=== PATIENT | female | born 2000 | race Hispanic/Latino ===

== ENCOUNTER 2020-08-06 22:24 | Day surgery (SDC) | payer OTHER ==
[2020-08-06 22:55] VITALS: BP 126/82; TEMP 97.9; BMI 35.7
[2020-08-06] MEDS ORDERED: hydrALAZINE 20 MG/ML VIAL SLOW IVP PRN (23:05)
--- NOTE | 2020-08-06 23:34 | PRG ---
DATE OF SERVICE: 08/06/2020 TIME OF SERVICE: 2300 hours. PRESENTING COMPLAINT: A 37 weeks gestation with contractions. HISTORY OF PRESENT ILLNESS: The patient is a 20-year-old primigravida at 37 weeks, OB record not on the unit. She reports no leakage of fluid. She reports contractions q.5-10 minutes for the past hour. She reports an uncomplicated . RESIDENTIAL PROGRAM WORKER HISTORY: As noted. PAST MEDICAL HISTORY: None. PAST SURGICAL HISTORY: None. ALLERGIES: DENIES. MEDICATIONS: vitamins. SOCIAL HISTORY: Denies tobacco, alcohol, or drug abuse. FAMILY HISTORY: Noncontributory. REVIEW OF SYSTEMS: Noncontributory. PHYSICAL EXAMINATION: GENERAL: female, in no acute distress. VITAL SIGNS: Blood pressure 118/72, pulse 85, respirations 18, temperature 97.9. HEENT: Within normal limits. LUNGS: Clear to auscultation bilaterally. HEART: Regular rate and rhythm. ABDOMEN: Soft and nontender. She has palpable contraction at approximately q.10 minutes. No CVA tenderness. Vulva is without lesions. Vagina is without discharge. Cervical exam by RN was closed, long and high. EXTREMITIES: No clubbing, cyanosis, or edema. LABORATORY STUDIES: monitoring was carried out for greater than 30 minutes, which revealed category 1 heart rate tracing. Positive accelerations, no decels and contractions approximately every 10 minutes. IMPRESSION: Maidens Hick's contractions. No evidence of active labor, 37 weeks gestation by stated estimated date of delivery. PLAN: Discharge home, ER precautions, keep scheduled followup with Dr. Sims at [facility]. Job ID: [id number]
[2020-08-07] MEDS ORDERED: FLU VACC QS2020-21(6MOS UP)/PF 60 MCG/0.5 ML SYRINGE IM ONE (09:00)
== END 2020-08-06 23:17 | disposition home or self-care (01) ==
LOC: L&D/OP 22:24
PROVIDERS: ATTEND Family Medicine
DX: O47.1 False labor at or after 37 completed weeks of gestation (principal); Z3A.37 37 weeks gestation of pregnancy

== ENCOUNTER 2020-08-19 09:36 | Inpatient (IN) | payer MEDICAID, OTHER, SELFPAY ==
[2020-08-19 11:03] VITALS: BMI 36.1
[2020-08-19 11:24] LABS: #Basophils 0.1 thou/uL (0.0-0.2); #Eosinphils 0.1 thou/uL (0.0-0.7); #Lymphocytes 2.3 thou/uL (1.20-3.40); #Monocytes 1.3 thou/uL (0.11-0.59); #Neutrophils 9.3 thou/uL (1.40-6.50); %Basophils 0.5 % (0.0-1.0); %Eosinophils 1.1 % (0.0-10.0); %Lymphocytes 17.4 % (28.0-48.0); %Monocytes 10.1 % (0.0-4.0); %Neutrophils 70.9 % (31.0-61.0); Hemoglobin 11.6 g/dL (12.0-16.0); Mean Corpuscular HGB CONC 33.5 g/dL (32.0-36.0); Mean Corpuscular Hemoglobin 27.1 pg (25.0-35.0); Mean Platelet Volume 9.6 fL (7.4-10.4); Platelet Count 243 thou/uL (130-400); RBC Distribution Width 15.7 % (11.5-14.5); Red Blood Cell (RBC) Count 4.29 mill/uL (4.00-5.20); White Blood Cell (WBC) Count 13.1 thou/uL (4.8-10.8)
[2020-08-19 11:43] LABS: ALT (SGPT) 13 U/L (8-55); AST (SGOT) 16 U/L (5-34); Albumin 3.2 g/dL (3.5-5.0); Alkaline Phosphatase 346 U/L (40-100); Anion Gap 14 mmol/L (10-20); BUN (Urea Nitrogen) 8 mg/dL (7.0-18.7); Bilirubin, Total 0.2 mg/dL (0.2-1.2); Calc. Creatinine Clearance 169 mL/min (70-130); Calcium 9.3 mg/dL (7.8-10.44); Carbon Dioxide 19 mmol/L (22-29); Chloride 106 mmol/L (98-107); Estimated GFR-MDRD Greater than 90; Globulin 3.1 g/dL (2.4-3.5); Glucose 69 mg/dL (70-105); Potassium 4.2 mmol/L (3.5-5.1); Protein, Total 6.3 g/dL (6.0-8.3); Sodium 135 mmol/L (136-145)
[2020-08-19] MEDS ORDERED: Terbutaline Sulfate 1 MG/ML VIAL ONE (12:16)
--- NOTE | 2020-08-19 13:47 | ULT ---
OB ULTRASOUND ULTRASOUND BIOPHYSICAL PROFILE: Date: 08/19/2020 HISTORY: Maternal hypertension. FINDINGS: Single, live intrauterine gestation is seen, with measurements corresponding to an estimated gestatio nal age of 36 weeks 0 days, and MONICA at 09/16/2020. The estimated weight measures 2810 gm, or 6 lbs 3 oz. measurements are as follows: BPD: 8.96 cm, 36 weeks 2 days HC: 32.29 cm, 36 weeks 3 days AC: 31.53 cm, 35 weeks 3 days FL: 7.11 cm, 36 weeks 3 days heart rate measures 132 beats/minute. ARTEM measures 11.1 cm. Placenta is posteriorly located without evidence of placenta previa. BIOPHYSICAL PROFILE: Tone: 2 Breathin Movements: 2 Amniotic Fluid: 2 IMPRESSION: 1. Single, live intrauterine of 36 weeks 0 days, and MONICA at 09/16/2020. 2. Ultrasound biophysical profile score is 8/8.
[2020-08-19] MEDS ORDERED: hydrALAZINE 20 MG/ML VIAL SLOW IVP PRN (14:10)
[2020-08-19] MEDS ORDERED: Ondansetron PF 4 MG/2 ML Vial IVP PRN (14:10)
[2020-08-19] MEDS ORDERED: Diphenoxylate HCl/Atropine Tablet PO PRN (14:10)
[2020-08-19] MEDS ORDERED: NS / Oxytocin 40 units/1000ml 1,000 ML IV PRN (14:10)
[2020-08-19] MEDS ORDERED: Lidocaine 1% (PF) 30 ML VIAL SC PRN (14:10)
[2020-08-19] MEDS ORDERED: Misoprostol 200 MCG TAB PR PRN (14:10)
[2020-08-19] MEDS ORDERED: Carboprost 250 MCG/ML AMP IM PRN (14:10)
[2020-08-19] MEDS ORDERED: HYDROcodone/Acetaminophen 5/325 mg Tablet PO PRN (14:10)
[2020-08-19] MEDS ORDERED: Ibuprofen 800 MG TAB PO PRN (14:10)
[2020-08-19] MEDS ORDERED: Promethazine HCl 25 MG/ML VIAL IM PRN (14:10)
[2020-08-19] MEDS ORDERED: NS w/ Oxytocin 10 units 500 ML IV SCH ×2 (14:15)
[2020-08-19 15:35] LABS: HBSAg Index 0.11 S/CO (0-0.99); Hep B Surf Ag Non-Reactive S/CO (NonReactive); Syphilis Antibody Nonreactive (Nonreactive); Syphilis Antibody Index 0.02 S/CO (<1.00 Non-Reactive)
[2020-08-19] MEDS: Misoprostol 100 MCG TAB VAG SCH (20:34)
[2020-08-20] MEDS: Butorphanol Tartrate 1 MG/ML VIAL SLOW IVP PRN ×3 (00:35→04:37)
[2020-08-20] MEDS: Lactated Ringer's 1,000 ML IV SCH ×3 (00:48→18:53)
[2020-08-20] MEDS: Misoprostol 100 MCG TAB VAG SCH ×4 (02:18→18:54)
[2020-08-20] MEDS ORDERED: Fentanyl 4 mcg/Bup 0.1% Cadd 100 ML ONE (05:52)
[2020-08-20] MEDS ORDERED: Acetaminophen 325 MG TAB PO PRN (06:45)
[2020-08-20] MEDS ORDERED: EPHEDRINE 25 MG/5 ML SYRINGE SLOW IVP PRN (06:45)
[2020-08-20] MEDS ORDERED: Naloxone HCl 0.4 mg/ml Vial IVP PRN ×2 (06:45)
[2020-08-20] MEDS ORDERED: Communication Order-Pharmacy FS SCH (06:45)
[2020-08-20] MEDS ORDERED: Ondansetron PF 4 MG/2 ML Vial IVP PRN ×2 (06:45→09:40)
[2020-08-20] MEDS ORDERED: Lactated Ringer's 500 ML IV PRN (06:45)
[2020-08-20] MEDS ORDERED: Fentanyl 4 mcg/Bupivacaine 0.1% Cassette 100 ML EPIDURAL SCH (06:45)
[2020-08-20] MEDS ORDERED: diphenhydrAMINE 50 MG/ML VIAL IVP PRN (06:45)
[2020-08-20] MEDS ORDERED: Promethazine HCl 25 MG/ML VIAL IM PRN (06:45)
[2020-08-20 08:32] LABS: Base Excess (BEa) -8.2 mEq/L (-2.0 to +3.0)
[2020-08-20 08:35] LABS: Actual Bicarbonate (HCO3v) 24 mEq/L (22-28); Base Excess -5.2 mEq/L (-2.0 to +3.0)
[2020-08-20 08:36] LABS: pH (Cord, venous) 7.22 (7.32-7.43)
[2020-08-20] MEDS ORDERED: Milk Of Magnesia 30 ML UDCUP PO PRN (09:40)
[2020-08-20] MEDS ORDERED: HYDROcodone/Acetaminophen 5/325 mg Tablet PO PRN ×2 (09:40)
[2020-08-20] MEDS ORDERED: Bisacodyl 10 MG SUPP PR PRN (09:40)
[2020-08-20] MEDS ORDERED: Benzocaine-Menthol 82.5 ML CAN TOP PRN (09:40)
[2020-08-20] MEDS ORDERED: NS / Oxytocin 40 units/1000ml 1,000 ML IV SCH (09:40)
[2020-08-20] MEDS ORDERED: Lanolin Ointment 7 GM TUBE TOP PRN (09:40)
[2020-08-20] MEDS ORDERED: hydrALAZINE 20 MG/ML VIAL SLOW IVP PRN (09:40)
[2020-08-20] MEDS ORDERED: cloNIDine 0.1 MG TAB PO PRN (09:40)
[2020-08-20] MEDS ORDERED: diphenhydrAMINE 25 MG CAP PO PRN (09:40)
[2020-08-20] MEDS ORDERED: Docusate Calcium (SURFAK) 240 MG CAP PO SCH (11:00)
[2020-08-20] MEDS ORDERED: Prenatal Vitamin 1 TAB PO SCH (11:00)
[2020-08-20] MEDS ORDERED: Adacel (T-DAP) 0.5 ML SYRINGE IM ONE (12:00)
[2020-08-20] MEDS: Ibuprofen 800 MG TAB PO SCH ×2 (14:05→20:28)
[2020-08-20 14:55] LABS: SARS-CoV-2 MS2 Positive; SARS-CoV-2 N Gene Negative; SARS-CoV-2 S Gene Negative; SARS-CoV-2 by NAA Not Detected (NotDetected); SARS-CoV-2 orf1ab Negative
[2020-08-20] MEDS: Ferrous Sulfate 325 MG TAB PO SCH (18:52)
[2020-08-20] MEDS: Docusate Calcium (SURFAK) 240 MG CAP PO SCH (20:28)
[2020-08-21] MEDS: Ibuprofen 800 MG TAB PO SCH ×3 (05:01→21:27)
[2020-08-21 06:27] LABS: Hemoglobin 10.1 g/dL (12.0-16.0); Mean Corpuscular Hemoglobin 27.4 pg (25.0-35.0); Mean Corpuscular Volume 83.1 fL (78.0-98.0); Mean Platelet Volume 9.2 fL (7.4-10.4); Platelet Count 199 thou/uL (130-400); RBC Distribution Width 16.3 % (11.5-14.5); Red Blood Cell (RBC) Count 3.67 mill/uL (4.00-5.20); White Blood Cell (WBC) Count 12.9 thou/uL (4.8-10.8)
[2020-08-21] MEDS: Ferrous Sulfate 325 MG TAB PO SCH ×2 (07:13→10:07)
[2020-08-21] MEDS: Docusate Calcium (SURFAK) 240 MG CAP PO SCH ×2 (09:51→21:27)
[2020-08-21] MEDS: Losartan 25 MG TAB PO SCH (09:51)
[2020-08-21] MEDS: Prenatal Vitamin 1 TAB PO SCH (09:51)
[2020-08-22] MEDS: Ibuprofen 800 MG TAB PO SCH (05:55)
[2020-08-22 09:47] VITALS: TEMP 97.9
[2020-08-22] MEDS: Losartan 25 MG TAB PO SCH (09:59)
[2020-08-22] MEDS: Prenatal Vitamin 1 TAB PO SCH (09:59)
[2020-08-22] MEDS: Docusate Calcium (SURFAK) 240 MG CAP PO SCH (09:59)
[2020-08-22] MEDS: Ferrous Sulfate 325 MG TAB PO SCH (10:00)
[2020-08-22 13:12] VITALS: BP 136/83
== END 2020-08-22 13:20 | disposition home or self-care (01) | DRG 807 ==
LOC: L&D/OP 09:36 → L&D 14:10 → 3SE 08-20 11:25
PROVIDERS: ADMIT Family Medicine; ATTEND Family Medicine
PROC: 10E0XZZ Delivery of Products of Conception, External Approach (ICD-10-PCS; principal; 2020-08-20)
PROC: 10907ZC Drainage of Amniotic Fluid, Therapeutic from Products of Conception, Via Natural or Artificial Opening (ICD-10-PCS; 2020-08-20)
PROC: 0W8NXZZ Division of Female Perineum, External Approach (ICD-10-PCS; 2020-08-20)
DX: O14.94 Unspecified pre-eclampsia, complicating childbirth (principal); Z37.0 Single live birth; Z3A.38 38 weeks gestation of pregnancy; Z20.828 Contact with and (suspected) exposure to other viral communicable diseases
CPT/HCPCS: 36415; 51702; 76815; 76819; 80053; 82570; 82805; 84156; 85025; 85027; 86780; 86850; 86900; 86901; 87340; 87635; 99285; J0595; J3105; U0003